=== PATIENT | male | born 1990 | race Caucasian/White ===

== ENCOUNTER 2018-08-12 19:01 | Emergency (ER) | payer OTHER ==
[~2018-08-12] VITALS: Ht 188 cm; Wt 77.1 kg
[2018-08-12 19:20] VITALS: BP 132/79; Ht 188 cm; Wt 77.1 kg
== END 2018-08-12 19:23 | disposition other institution (70) ==
LOC: ED 19:01
DX: Z02.89 Encounter for other administrative examinations (principal)